=== PATIENT | male | born 1990 | race Caucasian/White ===

== ENCOUNTER 2019-06-29 17:34 | Emergency (ER) | payer BC ==
[~2019-06-29] VITALS: Ht 165.1 cm; Wt 111.1 kg
[2019-06-29 18:06] VITALS: Ht 165.1 cm; Wt 111.1 kg
[2019-06-29 20:42] VITALS: BP 137/97
== END 2019-06-29 20:42 | disposition home or self-care (01) ==
LOC: ED 17:34
DX: L03.221 Cellulitis of neck (principal); J30.9 Allergic rhinitis, unspecified; K21.9 Gastro-esophageal reflux disease without esophagitis
CPT/HCPCS: J0696